=== PATIENT | female | born 1960 | race Two or more races ===

== ENCOUNTER 2024-06-05 12:00 | Day surgery (SDC) | payer OTHER, SELFPAY ==
[2024-06-05] VITALS (8 sets, daily range): BP systolic 120–155; BP diastolic 63–86; PULSE 72–83; RESP 12–18; TEMP 36.7–36.8; O2SAT 97–100; BMI 24.3
[2024-06-05] MEDS: SODIUM CHLORIDE 0.9% 500 ML 500 ML 20 ML IV (12:45)
[2024-06-05] MEDS: ONDANSETRON INJ 2 MG/ML INJ 2 ML 4 MG IV (14:41)
[2024-06-05] MEDS: DiphenhydrAMINE INJ 50 MG/ML VIAL 25 MG IV (14:41)
[2024-06-05] MEDS: MIDAZOLAM INJ 1 MG/ML VIAL 2 ML (ASD USE ONLY) 2 MG IV (14:49)
[2024-06-05] MEDS: fentaNYL CIT INJ 50 mCg/ML AMP 2ML (ASD USE ONLY) IV (14:49)
--- NOTE | 2024-06-05 15:54 | SUR.PHASEII ---
1503: Pt received for recovery. Report from Madeleine LI. Pt sleepy. Aroused then easily drifts back to sleep. Resp even, unlabored. VS stable. No c/o pain, discomfort. 1528: Pt more awake, alert. VS stable. Denies pain. Sitting up tolerating po fluids with no difficulty swallowing and no n/v. 1533: Pt fully awake, oriented x3. Pt assisted to restroom. Ambulation steady. 1548: Pt dressed and in transport chair. Pt and stated understanding of discharge instructions. Pt discharged from [facility] in stable condition.
== END 2024-06-05 15:48 | disposition home or self-care (01) ==
PROVIDERS: PCP Family Medicine; Referring Provider Specialist; Visit Provider Specialist
PROC: 0DBE8ZX Excision of Large Intestine, Via Natural or Artificial Opening Endoscopic, Diagnostic (ICD-10-PCS; CPT 45380; principal; 2024-06-05 13:00)
DX: Z12.11 Encounter for screening for malignant neoplasm of colon (principal); K64.9 Unspecified hemorrhoids; K57.30 Diverticulosis of large intestine without perforation or abscess without bleeding
CPT/HCPCS: 45378; J1200; J2250; J2405; J3010; J7040